=== PATIENT | female | born 1995 | race Caucasian/White ===

== ENCOUNTER 2020-09-04 20:08 | Emergency (ER) | payer OTHER ==
[~2020-09-04] VITALS: Ht 149.9 cm; Wt 72.6 kg
[~2020-09-04 20:08] MED LIST: ZOFRAN ODT 4 MG4 MG PO
[2020-09-04 21:13] LABS: HEMOGLOBIN 14.6 gm/dl (12.3-15.3); RED BLOOD COUNT 4.56 M/UL (4.00-5.10); WHITE BLOOD COUNT 5.9 K/UL (4.5-11.0)
[2020-09-04 21:33] LABS: BUN/CREATININE RATIO 14 (0-10)
== END 2020-09-05 00:39 | disposition home or self-care (01) ==
LOC: ER1 20:08
PROVIDERS: Physician Assistant Medical
DX: Z23 Encounter for immunization (principal); U07.1 COVID-19; F17.220 Nicotine dependence, chewing tobacco, uncomplicated
CPT/HCPCS: 0240U; 71045; 80053; 84703; 85025; 99283; J2405; M0243